=== PATIENT | female | born 1990 | race Caucasian/White ===

== ENCOUNTER 2017-07-23 08:36 | Day surgery (SDC) | payer OTHER ==
[~2017-07-23] VITALS: Ht 162.6 cm; Wt 45.8 kg
[~2017-07-23 08:36] MED LIST: CLEOCIN300 MG PO; CLINDAMYCIN HC300 MG PO; CLONAZEPAM0.5 MG PO; Children's Advil PO; FLINTSTONES1 TABLET PO; MOTRIN800 MG PO; Natalcare Rx,Pramile PO; PERCOCET 10-321 EACH PO; PERCOCET 5/31 TABLET PO; Pepcid PO; ROXICODONE5 MG PO; SERTRALINE HCL50 MG PO; XANAX0.5 MG PO; ZOFRAN ODT4 MG PO; ZOFRAN4 MG PO; ZOLOFT25 MG PO; ZOLOFT50 MG PO
[2017-07-23 09:18] VITALS: BP 110/59
[2017-07-23 09:24] LABS: EOSINOPHIL (%) 1.5 % (0-5); EOSINOPHIL COUNT 0.1 K/uL (0-0.3); IMMATURE GRANULOCYTE (%) 0.3 % (0.0-0.7); INSTRUMENT ABS NEUTROPHIL CT 3.8 K/uL; LYMPHOCYTE COUNT 1.7 K/uL (1.0-2.8); MCH 30.3 PG (29.0-34.0); MCHC 34.7 G/DL (30.0-36.0); MCV 87.4 FL (83-99); MEAN PLAT.VOLUME 9.6 uM^3 (9.5-12.4); MONOCYTE (%) 7.8 % (3-12); MONOCYTE COUNT 0.5 K/uL (0-0.8); NEUTROPHIL (%) 62.7 % (45-76); NEUTROPHIL COUNT 3.8 K/uL (1.8-6.4); PLATELET COUNT 253 K/uL (156-360); RBC DIS.WIDTH-SD 38.5 % (39-53); RED BLOOD COUNT 4.35 M/uL (3.80-5.20)
[2017-07-23 10:20] LABS: METH RESISTANT S AUREUS PCR NEGATIVE (NEGATIVE); PROBE CHECK PASS; SPECIMEN PROCESSING CONTROL PASS
[2017-07-23] MEDS ORDERED: IBUPROFEN800 MG PO (11:12)
== END 2017-07-23 13:00 | disposition home or self-care (01) ==
LOC: SDC 08:36
PROVIDERS: Obstetrics & Gynecology
PROC: 0UBC7ZX Excision of Cervix, Via Natural or Artificial Opening, Diagnostic (ICD-10-PCS; principal; 2017-07-23)
DX: D06.7 Carcinoma in situ of other parts of cervix (principal); F41.8 Other specified anxiety disorders; K21.9 Gastro-esophageal reflux disease without esophagitis; A63.0 Anogenital (venereal) warts; J45.909 Unspecified asthma, uncomplicated; N92.6 Irregular menstruation, unspecified; Z86.14 Personal history of Methicillin resistant Staphylococcus aureus infection; Z87.891 Personal history of nicotine dependence; Z88.0 Allergy status to penicillin
CPT/HCPCS: 84702; 85025; 87641; 88305; J0131; J1100; J1170; J1885; J2250; J2405; J2765; J3010